=== PATIENT | male | born 1950 | race Caucasian/White ===

== ENCOUNTER 2024-11-20 15:28 | Outpatient (CLI) | payer BC, SELFPAY ==
--- NOTE | 2024-11-20 10:00 | DI.RAD_ITS ---
Exam(s) XR LUMBAR SPINE AP, LAT EXAM: XR LUMBAR SPINE AP, LAT CLINICAL HISTORY: LOW BACK PAIN. TECHNIQUE: 2D digital imaging was performed. Five views. COMPARISON: No exams were available for comparison FINDINGS: BONES: No acute fracture or destructive lesion. Mild compression fracture of the superior endplate of L4. The remaining vertebral body heights are maintained. DISKS: Severe narrowing of the L2-3 disc space with prominent endplate osteophytes eccentric towa rd the right. Severe narrowing of the L 3 4 disc space on the left thick left eccentric osteophytes. Severe narrowing of the L5-S1 disc space with endplate osteophytes. ALIGNMENT: Mild degenerative scoliosis. SOFT TISSUE: Normal. IMPRESSION: Mild L4 compression fracture. Severe degenerative disc changes at L2-3, L3-4 and L5-S1. DATA REPOSITORY: RADIATION DOSE DELIVERED:
--- NOTE | 2024-11-20 10:00 | DI.RAD_ITS ---
Exam(s) XR HIP RT COMPLETE AP PELVIS EXAM: XR HIP RT COMPLETE AP PELVIS CLINICAL HISTORY: RIGHT HIP PAIN. TECHNIQUE: 2D digital imaging was performed. Two views COMPARISON: No exams were available for comparison FINDINGS: BONES: No acute fracture is present. No bony destructive lesion is seen. JOINTS: No dislocation present. Obliteration of the right hip joint space, with a [id number] appe arance. Subchondral cysts on both sides of the joint. Prominent periarticular spurring. The left h ip joint space is maintained. There is left acetabular spurring. Degenerative changes also noted at right SI joint. SOFT TISSUE: Normal. IMPRESSION: End-stage degenerative changes of the right hip. DATA REPOSITORY: RADIATION DOSE DELIVERED:
--- NOTE | 2024-11-20 10:00 | DI.RAD_ITS ---
Exam(s) XR KNEE RT 3V AP,LAT,VANESA EXAM: XR KNEE RT 3V AP,LAT,VANESA CLINICAL HISTORY: eval R knee pain, h/o arthroscopy. TECHNIQUE: 2D digital imaging was performed. Three views. COMPARISON: No exams were available for comparison FINDINGS: BONES: No acute fracture is present. No bony destructive lesion is seen. JOINTS: The knee is normally aligned. No joint effusion is seen. The joint spaces are maintained. Minimal periarticular spurring. SOFT TISSUE: Normal. IMPRESSION: Minimal degenerative changes. DATA REPOSITORY: RADIATION DOSE DELIVERED:
== END 2024-11-20 15:29 | disposition home or self-care (01) ==
LOC: DIORS 15:29
PROVIDERS: PCP Family Medicine; Visit Provider Student in an Organized Health Care Education/Training Program
DX: M51.362 Other intervertebral disc degeneration, lumbar region with discogenic back pain and lower extremity pain (principal); M16.0 Bilateral primary osteoarthritis of hip
CPT/HCPCS: 73562; 72100; 73502

== ENCOUNTER 2024-12-12 01:19 | Outpatient (CLI) | payer MEDICARE, BC, SELFPAY ==
--- OUTSIDE RECORDS SUMMARY | 2024-12-12 01:28 | XMS_ITS | Referral Summary ---
Author Organization [facility] Address [address] [place] [address] Care Team Providers Care Livestock Broker Name Role Phone Benjamin Maki DO Primary Care Provider [phone] Social History Tobacco Use Types Packs/Day Years Used Date Smoking Tobacco: Never Assessed Interpersonal Safety Answer Date Record ed Physically Hurt Never 03/04/2021 Verbally Threaten Not on file 03/04/2021 Sex and Gender Information Value Date Recorded Sex Assigned at Not on file Legal Sex Male 7:39 EDT Gender Identity Not on file Sexual Orientation Not on file Plan of Treatment Not on file Insurance [facility] Care Teams Livestock Broker Relationship Specialty Start Date End Date Benjamin Maki DO [address] [place] [address] PCP - General Family Medicine - Primary Care 02/03/21
--- OUTSIDE RECORDS SUMMARY | 2024-12-12 01:28 | XMS_ITS | Clinical Summary ---
Author Organization [facility] Address [address] [place] [address] Care Team Providers Care Supervisor Channel Process Name Role Phone Benjamin Maki DO Primary Care Provider Social History Tobacco Use Types Packs/Day Years Used Date Smoking Tobacco: Never Assessed Interpersonal Safety Answer Date Record ed Physically Hurt Never 03/04/2021 Verbally Threaten Not on file 03/04/2021 Sex and Gender Information Value Date Recorded Sex Assigned at Not on file Legal Sex Male 7:39 EDT Gender Identity Not on file Sexual Orientation Not on file Plan of Treatment Health Maintenance Due Date Last Done Comments Hepatitis C Screen 1950 Fall Risk Screening 2017 COVID-19 Vaccine (2023-25 season) 2024 RSV Immunization ( o r 60+ Years) (1 - 1-dose 75+ series) 2027 Insurance [facility] Care Teams Supervisor Channel Process Relationship Specialty Start Date End Date Benjamin Maki DO [address] [place] [address] PCP - General Family Medicine - Primary Care 02/03/21
--- OUTSIDE RECORDS SUMMARY | 2024-12-12 01:28 | XMS_ITS | Encounter Summary ---
Author Organization [facility] Address [address] [place] [address] Care Team Providers Care Instrumentation Technologist Name Role Phone ShanthiBenjamin Resendiz Primary Care Provider [phone] Encounter Details Date Type Department Care Team (Late st Contact Info) Description 06/22/2022 Lab Requisition [facility] Pathology & Laboratory Medicine - [address] [address] Michelet Tucker MD [address] [place] [address] Localized swelling, mass and lump, trunk Social History Tobacco Use Types Packs/Day Years Used Date Smoking Tobacco: Never Assessed Interpersonal Safety Answer Date Record ed Physically Hurt Never 03/04/2021 Verbally Threaten Not on file 03/04/2021 Sex and Gender Information Value Date Recorded Sex Assigned at Not on file Legal Sex Male 7:39 EDT Gender Identity Not on file Sexual Orientation Not on file documented as of this encounter Plan of Treatment Not on file documented as of this encounter Procedures Procedure Name Priority Date/Time Associated Diagnosis Comments SURGICAL PATHOLOGY Today 06/22/2022 10 :06 EDT Localized swelling, mass and lump, trunk documented in this encounter Results * SURGICAL PATHOLOGY (06/22/2022 10:06 EDT) Note to Patient The following pathology results have been interpreted by your pathologist and may be available to you before your health provider has had the opportunity to review them. Please allow time for your provider to receive these results and explore management options, if applicable. 07/04/2022 11:51 EDT [facility] Final Diagnosis A. SOFT TISSUE OF NECK, POSTERIOR, CYST, EXCISION: - Ruptured epidermal inclusion cyst with marked acute and chronic inflammation (see comment). 07/04/2022 11:51 [facility] Diagnosis Comment GMS and gram stains are negative for definitive fungal or bacterial organisms. 07/04/2022 11:51 [facility] Attestation There was significant resident/fellow involvement in the diagnostic evaluation of this case. By the signature below, the attending physician certifies that they have personally conducted a gross and/or microscopic examination of the described specimens and rendered or confirmed the above diagnosis. 07/04/2022 11:51 [facility] at 1151 Clinical History Clinical diagnosis code: R22.2 07/04/2022 11:51 [facility] Gross Description A. Received in formalin labelled with proper patient identification (initials T, P) and posterior neck cyst is a previously disrupted yellow-white to goetz rubbery irregularly-shape d tissue (3.6 x 1.9 x 1.0 cm). The tissue is partially covered by a white-goetz pasty material. The specimen is serially sectioned to reveal a smooth walled cystic cavity (2.0 x 1.3 x 0.6 cm) that is partially line with white-goetz pasty material. The remaining cut surfaces are yellow-white to dark brown and smooth. Steam Boiler Fireman sections are submitted in A1 and A2. SOFÍA DAWKINS MD 06/23/2022 14:40 07/04/2022 11:51 [facility] Resident/Fabrice w: Sofía Dawkins MD Koster, Thomas John, DO 07/04/2022 11:51 T [facility] Performing Lab [facility] 07/04/2022 11:51 [facility] Scanned Images 07/04/2022 11:51 [facility] Tissue SOFT TISSUE / Unknown 06/22/2022 10:06 EDT 06/22/2022 23:56 EDT us Michelet Tucker MD PATHOLOGY ORDERABLES F inal Result [facility] [address] [place] [address] documented in this encounter Visit Diagnoses Diagnosis Localized swelling, mass and lump, trunk documented in this encounter Care Teams Instrumentation Technologist Relationship Specialty Start Date End Date Benjamin Maki DO [address] [place] [address] PCP - General Family Medicine - Primary Care 02/03/21 documented as of this encounter
--- OUTSIDE RECORDS SUMMARY | 2024-12-12 01:28 | XMS_ITS | Encounter Summary ---
Author Organization [facility] Address [address] [place] [address] Care Team Providers Care Fire Services Plumber Name Role Phone ShanthiBenjamin Resendiz Primary Care Provider Encounter Details Date Type Department Care Team (Late st Contact Info) Description 03/04/2021 Lab Requisition [facility] Pathology & Laboratory Medicine - [address] [address] Dung Sharma MD [address] [place] [id number] Encounter for screening for malignant neoplasm of colon Social History Tobacco Use Types Packs/Day Years [...] Date/Time Associated Diagnosis Comments SURGICAL PATHOLOGY Today 03/03/2021 10 :17 EDT Encounter for screening for malignant neoplasm of colon documented in this encounter Results * SURGICAL PATHOLOGY (03/03/2021 10:17 EDT) Final Diagnosis A. COLON, CECUM, POLYP, BIOPSY: - Benign colonic mucosal fold. See comment. B. COLON, RECTOSIGMOID JUNCTION, POLYP, BIOPSY: - Hyperplastic polyp 03/08/2021 8:51 EDT [facility] Diagnosis Comment Deeper sections have been examined. 03/08/2021 8:51 EDT [facility] Attestation By the signature below, the attending physician certifies that they have 1) personally conducted a gross and/or microscopic examination of the described specimen(s), and/or personally interpreted the results of laboratory testing of the described specimen(s), and 2) personally rendered or confirmed the above diagnosis. 03/08/2021 8:51 T [facility] at 0851 Clinical History Screening colonoscopy; clinical diagnosis code: Z12.11 03/08/2021 8:51 EDT [facility] Gross Description A. Received in formalin labelled with proper patient identification (initials T, P) and cecal polyp are 2 fragments of mccall tissue measuring 0.2 cm and 0.3 cm in greatest dimension. The specimens are submitted in A1. B. Received in formalin labelled with proper patient identification (initials T, P) and rectosigmoid junction polyp is a single fragment of mccall tissue (0.2 x 0.2 x 0.2 cm). The specimen is submitted in B1. ESTIVEN FARMER(ASCP) 03/04/2021 8:31 03/08/2021 8:51 EDT [facility] Performing Lab [facility] 03/08/2021 8:51 T [facility] Scanned Images 03/08/2021 8:51 T [facility] Tissue ENTIRE SIGMOID COLON / Unknown 03/03/2021 10:17 EDT 03/04/2021 7:40 EDT Tissue specimen (specimen) SIGMOID COLON STRUCTURE / Unknown 03/03/2021 10:17 EDT 03/04/2021 7:40 EDT us Dung Sharma MD PATHOLOGY ORDERABLES Final Result [facility] [address] [place] [address] documented in this encounter Visit Diagnoses Diagnosis Encounter for screening for malignant neoplasm of colon Special screening for malignant neoplasms, colon documented in this encounter Care Teams Fire Services Plumber Relationship Specialty Start Date End Date Benjamin Maki DO [address] [place] [address] PCP - General Family Medicine - Primary Care 02/03/21 documented as of this encounter
[2024-12-12 10:15] LABS: HGB 14.3 g/dL (13.5-17.5); MCH 32.3 pg (27.0-33.0); MCV 95 fL (80-95); MPV 10.4 fL (8.0-11.0); Platelet Count 196 10^3/uL (130-400); RBC 4.43 10^6/uL (4.36-5.78); RDW 12.3 % (11.8-14.1); RDW-SD 43.5 fL; WBC 5.81 10^3/uL (4.4-10.8)
[2024-12-12 10:28] LABS: Anion Gap 6.5 mmol/L (3-11); BUN 19 mg/dL (7-18); CO2 30.5 mmol/L (21.0-32.0); CREATININE 1.1 mg/dL (0.70-1.30); Calcium 9.1 mg/dL (8.5-10.1); Chloride 106 mmol/L (98-107); Estimated GFR 71.32 (mL/min/1.73m2); Glucose 94 mg/dL (74-106); Potassium 3.5 mmol/L (3.5-5.1); Sodium 143 mmol/L (136-145)
== END 2024-12-12 01:20 | disposition home or self-care (01) ==
LOC: LBO 01:19
PROVIDERS: PCP Family Medicine; Visit Provider Student in an Organized Health Care Education/Training Program
DX: M16.11 Unilateral primary osteoarthritis, right hip (principal); Z01.818 Encounter for other preprocedural examination
CPT/HCPCS: 36415; 80048; 85027

== ENCOUNTER 2024-12-23 07:57 | Day surgery (SDC) | payer MEDICARE, BC, SELFPAY ==
[2024-12-23] VITALS (13 sets, daily range): BP systolic 135–175; BP diastolic 71–109; PULSE 55–143; RESP 12–27; TEMP 36.3–36.6; O2SAT 96–100; BMI 29.5
--- NOTE | 2024-12-23 08:34 | W.ANESPRE ---
General Info Date of Service Date Performed: 12/23/24 Height: 6 ft Weight: 98.883 kg Body Mass Index (BMI): 29.5 Surgical Procedure: Operation Date: 12/23/24 10:35 Proposed Procedure Side Surgeon p Hip Total Hip Anterior, ACTIS Right Robert Mccormick MD Meds Allergies and Home Medications Allergies Allergy/AdvReac Type Severity Reaction Status Date / Time No Known Allergies Allergy Verified 12/23/24 08:42 Home Medication ?Medication ?Instructions ?Recorded acetaminophen 650 mg 650 mg PO Q8H 09/17/24 tablet,extended release (Tylenol 8 Hour) apixaban 5 mg tablet (Eliquis) 5 mg PO BID 09/17/24 furosemide 40 mg tablet 40 mg PO DAILY 11/20/24 metoprolol succinate 25 mg 25 mg PO DAILY 11/20/24 tablet,extended release 24 hr Current Visit Medications: Current Medications Generic Name Dose Route Start Last Admin Trade Name Freq PRN Reason Stop Dose Admin Acetaminophen 1,000 mg 12/23/24 06:00 Acetaminophen 500 Mg Tab PO 12/23/24 23:59 PREOP KAYLIE Celecoxib 400 mg 12/23/24 06:00 Celecoxib 200 Mg Cap PO 12/23/24 23:59 PREOP KAYLIE Hydromorphone HCl 0.5 mg 12/23/24 07:23 Hydromorphone 2 Mg/Ml Syr IVP 01/22/25 07:22 Q2H PRN PRN Ringer's Solution 1,000 mls @ 80 mls/hr 12/23/24 06:00 IV 12/23/24 23:59 INFUSION KAYLIE Cefazolin Sodium/Dextrose 2 gm in 50 mls @ 100 mls/hr 12/23/24 06:00 Ancef Duplex IVPB 12/23/24 23:59 PREOP KAYLIE Tranexamic Acid/Sodium Chloride 1,000 mg in 100 mls @ 600 mls/hr 12/23/24 06:00 IVPB 12/23/24 23:59 PREOP KAYLIE Cefazolin Sodium/Dextrose 1 gm in 50 mls @ 100 mls/hr 12/23/24 08:00 Ancef Duplex IVPB 12/24/24 00:29 Q8H KAYLIE IV Miscellaneous Supplies 1 each 12/23/24 06:00 Iv Access IV 12/23/24 23:59 DIRECTED KAYLIE Oxycodone HCl 0 mg 12/23/24 07:23 Oxycodone 5 Mg Tab PO 01/22/25 07:22 Q3H PRN PRN Pain Sodium Chloride 0 ml 12/23/24 06:00 Normal Saline Flush 10 Ml Syr IV 12/23/24 23:59 PRN PRN Sodium Chloride 0 ml 12/23/24 06:00 Normal Saline 10 Ml Vial IJ 12/23/24 23:59 DIRECTED PRN Sterile Water 0 ml 12/23/24 06:00 Water,Injection,Sterile 10 Ml Vial IJ 12/23/24 23:59 DIRECTED PRN PFSH Active Problems Active Problems: Problem Status Onset Code Arthritis of right hip Chronic M16.11 Full dentures Acute Z97.2, K08.109 Afib Chronic I48.91 Medical History Medical History (Updated 12/23/24 @ 09:41 by Arlene Cortez) History of echocardiogram (05/05/24) Surgical History Surgical History History of excision of mass neck History of colonoscopy (02/16/21) History of arthroscopy of right knee (11/01/23) Dr. Snyder Tobacco Smoking/Tobacco Use Status: Never Alcohol Alcohol Intake: never Substance Use Substance use: Never Substance use type: does not use Vital Signs and Lab Results Vital Signs Most Recent Vital Signs in EMR: Temp Pulse Resp BP Pulse Ox 36.4 C L 64 16 175/88 H 99 12/23/24 08:35 12/23/24 08:35 12/23/24 08:35 12/23/24 08:35 12/23/24 08:35 Lab Results Blood Type / Crossmatch: No Data to Display Complete Blood Count: White Blood Count 5.81 10^3/uL (4.4-10.8) 12/12/24 09:31 Red Blood Count 4.43 10^6/uL (4.36-5.78) 12/12/24 09:31 Hemoglobin 14.3 g/dL (13.5-17.5) 12/12/24 09:31 Hematocrit 42.0 % (40.0-50.0) 12/12/24 09:31 Platelet Count 196 10^3/uL (130-400) 12/12/24 09:31 Complete Metabolic Panel: Sodium 143 mmol/L (136-145) 12/12/24 09:31 Potassium 3.5 mmol/L (3.5-5.1) 12/12/24 09:31 Chloride 106 mmol/L (98-107) 12/12/24 09:31 Carbon Dioxide 30.5 mmol/L (21.0-32.0) 12/12/24 09:31 BUN 19 mg/dL (7-18) H 12/12/24 09:31 Creatinine 1.1 mg/dL (0.70-1.30) 12/12/24 09:31 Est GFR (CKD-EPI 2020) 71.32 (mL/min/1.73m2) 12/12/24 09:31 Calcium 9.1 mg/dL (8.5-10.1) 12/12/24 09:31 Glucose 94 mg/dL (74-106) 12/12/24 09:31 Liver Function Panel: No Data to Display Coagulation Panel: No Data to Display Cardiac Panel: No Data to Display Arterial Blood Gas: No Data to Display Venous Blood Gas: No Data to Display Pancreas Panel: No Data to Display Thyroid Panel: No Data to Display Infectious Disease: No Data to Display Blood Cultures: No Data to Display Toxicology Panel: No Data to Display Imaging and Studies Imaging and Studies Study information below may be from another EMR and interpreted by another provider. Please see original notes in EMR for more complete details. Echocardiogram Summary: 12/2024 EF 42%, inferior hypokinesis, mod MR Anesthesia Assessment and Plan Anesthesia History Personal History: No History of Anesthesia Complications Family History: No Family History of Anesthesia Complications Exercise Tolerance Exercise Tolerance: Metabolic Equivalents<4 Pertinent Negatives Pertinent Negatives: No Symptoms of GERD, No Major Cardiovascular Symptoms or Complaints and No Major Pulmonary Symptoms or Complaints Cardiac & Pulmonary Exam Cardiac Exam: Normal S1/S2 Heart Sounds Pulmonary Exam: Clear Bilateral Breath Sounds Cardiac and Pulmonary Comment:: Cardiomyopathy, ASCVD, cardiac clearance from [facility] internal communications specialist last week Implantable Cardiac Device Does patient have a Pacemaker or an ICD?: No Airway Exam Known Difficult Airway: No Mallampati Class: 2 Mouth Opening: Normal (> 3cm) Thyromental Distance: Greater than 3 cm Neck Range of Motion: Full ROM Neck Circumference: Normal Teeth Condition: Generalized Poor Dentition (Many missing teeth, none loose per patient) ASA Classification ASA Score: ASA 3 Emergency Case?: No NPO Status NPO Status: NPO Clears >2 hours, Solids >8 hours Anesthesia Plan Resuscitation Status: Full Code Anesthesia Technique: Spinal Anesthesia Airway Planned: Natural Airway Monitors Used: Standard Monitors Preoperative Comments:: Radha Patel (last dose 12/19/24)
[2024-12-23] MEDS: Celecoxib 200 MG CAP 400 MG PO (08:55)
[2024-12-23] MEDS: Lactated Ringers 1,000 ML 80 ML IV (08:57)
[2024-12-23] MEDS: ceFAZolin 2 GM/50 ML BAG IVPB (10:33)
[2024-12-23] MEDS: TRANEXAMIC ACID/SOD. CHL. 1,000 MG/100 ML BAG 600 MG IVPB (10:50)
--- NOTE | 2024-12-23 10:59 | PDOC.DSDIS_ITS ---
Date of service: 12/23/24 Discharge Plan Disposition Patient Disposition: Home Condition: Good Discharge Details Reason For Visit: Right hip DJD Attending Provider: Robert Mccormick Primary Care Provider: Benjamin Maki Home Meds and New Rx's Prescriptions: New celecoxib [Celebrex] 200 mg capsule 200 mg PO BID PRNQty: 60 0RF Rx Instructions: Take one tablet twice daily for pain and inflammation acetaminophen 500 mg tablet 1,000 mg PO Q8H PRN Qty: 90 0RF Rx Instructions: Take two tablets up to every 8 hours as needed for pain pantoprazole 40 mg tablet,delayed release (DR/EC) 40 mg PO DAILY Qty: 14 0RF dexamethasone 4 mg tablet 4 mg PO DAILY Qty: 2 0RF Rx Instructions: Take one tablet once daily for two days docusate sodium [Colace] 100 mg capsule 100 mg PO BID Qty: 30 0RF oxycodone 5 mg tablet 5 mg PO Q6H PRNQty: 12 0RF Rx Instructions: Take one tablet up to every 6 hours as needed for severe postoperative pain Continued metoprolol succinate 25 mg tablet extended release 24 hr 25 mg PO DAILY furosemide 40 mg tablet 40 mg PO DAILY Eliquis 5 mg tablet 5 mg PO BID Discontinued acetaminophen [Tylenol 8 Hour] 650 mg tablet extended release 650 mg PO Q8H Discharge Instructions Additional Instructions: Total Hip Discharge Instructions Activity: The most important activity is to walk. You should try to take short walks a few times a day. You have no restrictions on movement or positioning, but do not try to force what you do. You will find some stiffness and weakness with hip flexion (lifting your knee). Do not try to strengthen this too early, continue to practice walking and stairs and this will come. - Outpatient physical therapy can be helpful to help return you to a normal gait and improve your flexibility and strength. This can start around 2 weeks. For some patients, it?s not necessary. Usually this is determined at the time of discharge or at the first post-operative visit. - You should wear the MEGHA hose on both legs for 2 weeks. Dressing: Keep the surgical dressing in place for at least one week. After the first week it may be removed and replace with light gauze and tape or nothing. It may get wet after 3 days but avoid soaking the dressing. If it gets wet, just lightly pat dry. It is important to always keep some gauze between skin folds, especially when you are sitting. Spend some time with the wound exposed when you are lying flat as the incision does wrinkle onto itself. Medications: - You should take Tylenol and an anti-inflammatory Celebrex as your primary pain control medications. If the Celebrex is too expensive or not covered, please call the office for another alternative (Advil/Ibuprofen or Naproxen/Aleve). - You have been prescribed a stronger pain medication Oxycodone for breakthrough pain, take as needed as prescribed. - You have also been prescribed a stomach acid reduction agent Pantoprozole to help reduce stomach acid and reflux. - You have also been prescribed Decadron to help with post-operative nausea and pain. You will take this for two days starting tomorrow. - You will resume taking your anticoagulation, Apixaban, tomorrow on 12/24/24. - If you have constipation you should take Colace (which has been prescribed) or Miralax (which is available [id number]). It takes most people 3-4 days to have a bowel movement. Follow-up: 2 weeks If you have any acute concerns or questions, please do not hesitate to contact the office at [phone]. You may contact Dr. Mccormick with any questions after hours through the hospital at [phone] or on his cell phone at [phone]. Referrals: Robert Mccormick MD [ [facility] STAFF PHYSICIAN] - Equipment/Supplies: Walker Activity:: Elevate Remove Dressings/Wound Care:: Do Not Remove Shower/Bathe:: Cover Diet:: As Tolerated Discharge Orders Discharge Orders: Discharge Order (Routine); Ordered 12/23/24 Ordered By: Radha Sanchez
--- NOTE | 2024-12-23 12:00 | DI.RAD_ITS ---
Exam(s) XR HIP LT IN OR EXAM: XR HIP LT IN OR CLINICAL HISTORY: left hip osteoarthritis TECHNIQUE: 2D and realtime digital imaging was performed. CONTRAST MATERIAL: Refer to procedure report. COMPARISON: CR XR HIP RT COMPLETE AP PELVIS from 11/20/2024 FINDINGS: Fluoroscopy was provided for Dr. Mccormick during the performance of a right total hip arthroplasty. Please refer to the procedure report for complete details. Ka,r=4.4 mGy IMPRESSION: RADIATION DOSE DELIVERED: 0.0 0.0 0
--- NOTE | 2024-12-23 12:16 | W.PM.OP ---
Operative Note Operative Note PRE-OP DIAGNOSIS: Right Hip Osteoarthritis POST-OP DIAGNOSIS: same PROCEDURE: Right Anterior Total Hip Arthroplasty with Intraoperative Navigation SURGEON: Robert Mccormick ANIMAL PHYSIOLOGY TEACHER: Radha Sanchez ANESTHESIA TYPE: Spinal Refer to Anesthesia Record ESTIMATED BLOOD LOSS: 150 PATHOLOGY: none sent TOURNIQUET TIME: 0 COMPLICATIONS: None Patient was transported to: PACU Patient's condition: stable Implants: 1. Depuy Imperial Acetabular Component, 58mm 2. Depuy Acetabular Liner, [id number] 3. Depuy Actis Standard Collared Femoral Stem, Size 8 4. Depuy Altrx Ceramic Femoral Head, Size 36+5mm Indications: I have seen Duke in clinic for symptoms of hip arthritis, confirmed with radiographic findings. He has exhausted nonoperative methods and was having significant limitations in daily function and desired better function and less pain. I discussed the technical details of a hip replacement. I explained the risks of the procedure to include, but not limited to, bleeding, infection, pain, stiffness, fracture, damage to nerves and vessels, damage to muscles and tendons, loosening, instability, leg length inequality, need for repeat procedure, blood clot and cardiopulmonary demise. Despite these risks, Duke elected to proceed. Findings: There was significant signs of arthritis throughout the hip with large osteophytes throughout. THere was notable deformity of the superior femoral head and loose osteophytes adjacent to the superior acetabulum. Procedure Description: Duke was greeted in the preoperative holding area where the correct side was identified and marked. The consent was reviewed with the patient and signed. The history and physical was updated. All questions were answered. He was taken back to the operating room. A spinal anesthestic was then administered. The feet were wrapped with cast padding and Coban and then placed into the boot liners and then into the boots. Care was taken to protect the skin and make sure the heels were fully down and the boots were stable. The patient was then positioned onto the HANA table. Both legs were held in a neutral position. SCDs were applied. The patient was then slid down onto a peroneal post. Prophylactic antibiotics in the form of Cefazolin were administered. 1g of Tranxemic Acid was given intravenously within 30 minutes of incision. The right leg was then prepped with Chloraprep and draped in a standard fashion. A second prep with Chloraprep was performed prior to placement of a shower-curtain type drape with Iodine impregnated skin protection. A timeout to confirm correct identity, side and site, procedure, allergies, anesthesia, and medical concerns was performed. An obliquely oriented incision was made starting lateral to the ASIS and running distal over the Tensor Fascia Arabella (TFL) muscle belly toward the fibular head, approximately 10cm. The skin and soft tissue was dissected sharply, through Dariana?s fascia, and to the fascia of the TFL. With the fascia and superior border of the IT band identified, the fascia was incised with a new knife just above any perforators from the IT band. The TFL muscle belly was bluntly dissected away from the fascia and moved laterally. The fat between TFL and rectus was identified to ensure the dissection was not within the TFL. Blunt dissection created space between abductors and the capsule and retractor was placed over the lateral femoral neck. The fibers of the rectus femoris tendon were identified and these were freed from the anterior capsule. A second cobra retractor was placed around the medial femoral neck. The TFL was further retracted laterally to show the deep fascia. Careful dissection through this layer identified three main crossing vessels of the lateral femoral circumflex. These were cauterized in multiple locations and then cut without any noticeable bleeding. The TFL was further released bluntly from the deep fascia to expose anterior hip capsule and fat The soft tissue orthopaedic retractor was then placed beneath the TFL and against sartorius and medial soft tissues to protect and retract the soft tissues. A T-capsulotomy was then performed starting at the superior lateral acetabulum and moving distally to the intertrochanteric ridge. These capsular flaps were tagged with a No. 1 Vicryl and elevated from within. The capsular flaps were released to the shoulder of the lateral neck and to the lesser trochanter to give excellent visualization of the proximal femur. A neck osteotomy was performed using an oscillating saw based on preoperative templates. This cut started in the shoulder and of the lateral neck and exited medially. The saw was at all times directed medially to avoid injury to the greater trochanter. Gross traction was applied to the leg and the osteotomy opened. The femoral head was removed with a corkscrew, making sure to protect the TFL on its exit. Traction was released after head removal. This was measured on the back table to determine the starting reamer size. Portions of the rectus obscuring visualization were minimally elevated off the superior acetabulum. An anterior retractor was placed over the anterior wall between capsule and labrum and attached to the Gripper retraction system. The femur was rotated to 90 degrees and medial capsule was fully released until the lesser trochanter was palpable and visible; the femur was returned to 30 degrees. A posterior retractor was placed similarly between capsule and labrum. This provided excellent visualization. The contents of the cotyloid fossa were removed with electrocautery and the labrum was removed with a knife. There was a notable floor osteophyte. There was significant chondromalacia of the superior acetabulum. Acetabular reaming began with a 53mm reamer. This first reaming was directed anterior to posterior and medial to get down to the true floor. This was inspected and reamed until the true floor was reached. The anterior retractor was then released and entry and exit was provided by traction on the capsular flaps. I then reamed sequentially up to a 58mm reamer where good fit was obtained. The larger reamers were oriented based on anatomical reference of the anterior and lateral gaston to ensure proper abduction and anteversion. Positioning and size was confirmed with the fluoroscopy. A 58mm Depuy Imperial acetabular component was selected. The acetabulum was reamed around the periphery with the selected acetabular size to prevent a rim fit. The deep tissues were irrigated. The acetabular component was then impacted in a position of about 40-45 degrees of abduction and 15-20 degrees of anteversion, using the patient?s anatomy as the ultimate landmark. Fluoroscopy was used to confirm this. There was excellent photoengraving helper of the acetabular component and the inserting handle was removed. The acetabular liner, Depuy [id number] polyethylene liner, was inserted and lined up with the tines of the acetabular component. There was no soft tissue interposition. The liner was then impacted into position and confirmed to be well-seated. A portion of the oma-articular cocktail was then injected around the acetabulum into the capsule and periosteum. This cocktail consisted of 123mg of Ropivacaine, 0.25mg of Epinephrine, 0.04mg of Clonidine, and 15mg of Ketorolac, diluted to 50cc. The leg was rotated to 120 degrees. Any remaining medial capsule was released until the lesser trochanter was easily palpable. A retractor was placed medially. The lateral capsule was further released into the shoulder to allow access to the greater trochanter. A Alford retractor was placed over the greater trochanter which allowed the trochanter to flip in front of the capsule for excellent exposure. The leg was brought down into maximal extension and 20 degrees of adduction while ensuring there was no impingement on the acetabulum. Any remnant capsule within the trochanter was released. Piriformis and obturator externis were identified and protected. There was excellent access to the proximal femur. The lateral neck remnant was removed with a rongeur. A blunt canal probe was used to identify the canal and trajectory for later broaching. A box osteotome initiated the broach course. A small curved rasp and a curved curette were used to work laterally. Broaching then began with a starter Actis broach. This was inserted manually around the trochanter and into the canal before mallet blows. The broach was seated to a few millimeters below the cut level based on the neck cut and the preoperative template. Sequential broaching was continued with the [employer] pneumatic broaching device until a tight fit was obtained with good rotational control of the femur. A trial standard neck was inserted along with a +1.5 trial head. The leg was brought out of extension and adduction and then reduced with traction and internal rotation. The leg was stable anteriorly in a position of 30 degrees of extension and 90 degrees of external rotation. Fluoroscopy was used to ensure there was no fracture and the stem was seated well. Leg lengths were checked with an AP pelvis and pelvic reference points. [employer] navigation system was used to confirm appropriate positioning and leg length and offset. Once content with the desired offset and leg lengths, the leg was brought back into extension, external rotation and adduction. The periosteum and surrounding tissue was injected with remaining portion of the oma-articular cocktail. The proximal femur was irrigated as well as the deep tissues. The [employer] Actis standard collared stem, size 8, was then manually inserted into the proximal femur making sure to control rotation. It was then malleted into position with light blows, giving breaks to allow bone expansion and decrease risk of fracture. The selected Depuy Altrx Ceramic Head, size 36+5mm, was then placed onto the clean and dry trunnion and secured with impaction onto the tapered fit. The leg was brought back out of extension and adduction and reduced with traction and internal rotation. Stability was confirmed with no shuck at 90 degrees of external rotation and 30 degrees of extension. No impingement through range of motion arc. Final x-ray images were obtained with fluoroscopy to confirm adequate positioning and no intraoperative fracture. The deep tissues were thoroughly irrigated with Surgiphor, betadine solution. This was allowed to sit in the wound for 3 minutes before being thoroughly irrigated out with normal saline. The capsule was then reapproximated with the previously placed sutures. The TFL fascia was finally closed with a No. 2 Stratafix, barbed suture. Deep tissues were then reapproximated with 0 Vicryl and a running 2-0 Vicryl. The skin was closed with a running 4-0 Monocryl in a subcuticular fashion. This was reinforced with skin glue. A Mepilex silver dressing was applied. At the end of the case, all counts were correct. Duke was transferred to the hospital bed without difficulty and suffering no apparent complication. Duke has a good prognosis. Physical therapy will start today and without restrictions, weight-bearing as tolerated. His home dose of Apixaban 5mg will be used for DVT prophylaxis. Date of Procedure: 12/23/24
--- NOTE | 2024-12-23 12:30 | DI.RAD_ITS ---
Exam(s) XR HIP RT IN OR EXAM: XR HIP RT IN OR CLINICAL HISTORY: Right hip osteoarthritis TECHNIQUE: 2D and realtime digital imaging was performed. CONTRAST MATERIAL: Refer to procedure report. COMPARISON: CR XR HIP RT COMPLETE AP PELVIS from 11/20/2024 FINDINGS: Fluoroscopy was provided for Dr. Mccormick during the performance of a right total hip arthroplasty. Please refer to the procedure report for complete details. Ka,r=4.4 mGy IMPRESSION: RADIATION DOSE DELIVERED: 0.0 0.0 0
--- NOTE | 2024-12-23 13:13 | W.ANESPOSTOP ---
Postoperative Evaluation Date, Time and Location Date Performed: 12/23/24 Time Performed: 13:13 Patient Location: Day Surgery Unit Vital Signs Most Recent Imported Vital Signs: Most Recent Vital Signs Temp Pulse Resp BP Pulse Ox 36.3 C L 64 16 150/93 H 98 12/23/24 12:46 12/23/24 12:46 12/23/24 12:46 12/23/24 12:46 12/23/24 12:46 Pain Score Most Recent Pain Score: Most Recent Pain Score Pain Level 1 12/23/24 12:46 Assessment Mental Status: Awake (Alert & Oriented to Patient Baseline) Airway and Respiratory Function: Patent airway with normal (patient baseline) respiratory exam Cardiovascular Function: Hemodynamically Stable Hydration Status: Adequately Hydrated Nausea & Vomiting: No Nausea or Vomiting Pain: Pain is tolerable per patient Peripheral Nerve Block: Patient did not receive a nerve block
--- NOTE | 2024-12-23 13:43 | IN_ITS ---
PT Notes Visit Reasons: Right hip DJD Physical Therapy Day Surgery Initial Evaluation Date: 12/23/2024 Referring Doctor: ESTIVEN Mann PT Orders: PT CONSULT: S/P Ortho surgery Precautions: WBAT on right LE with AD. Patient Profile/Admitting Diagnosis: Duke is a 74-year-old male with degenerative joint disease of the right hip and status post right total hip arthroplasty on postoperative day 0. PMHX: Medical History (Updated 12/12/24 @ 10:08 by Radha Sanchez) History of echocardiogram (05/05/24) Surgical History (Updated 12/12/24 @ 10:09 by Radha Sanchez) History of excision of mass neck History of colonoscopy (02/16/21) History of arthroscopy of right knee (11/01/23) Dr. Snyder Social History/Home Situation: Lives with in a private home with 1-2 steps to enter without rails and a flight of steps to the second floor of the house where the bedroom is. Had been using bilateral axillary crutches for 4 months for safety. Equipment Owned/DME: [employer], bilateral axillary crutches Subjective: Denied headache, chest pain, and lightheadedness throughout session reported 2/10 pain in the right hip with movement, 0/10 at rest. Objective: General Observation: Mepilex Ag over surgical incision. TDS to be legs. Mental Status: A and O x 4 Pain: complained of 2/10 pain in the right hip with movement ROM: Right Lower Extremity: Hip flexion WFL. Hip abduction WFL. Knee flexion 10 degrees to 110 degrees. Extension -10 degrees. Ankle dorsiflexion WFL. Ankle plantarflexion WFL. Left Lower Extremity: Hip flexion WFL. Hip abduction WFL. Knee flexion WFL. Ankle dorsiflexion WFL. Ankle plantarflexion WFL. Strength: Right Lower Extremity: Hip flexors 4/5. Hip abductors 4/5. Knee flexors 3-/5. Knee extensors 3-/5. Ankle dorsiflexors 5/5. Ankle plantarfleors 5/5. Left Lower Extremity:Hip flexors 5/5. Hip abductors 5/5. Knee flexors 5/5. Knee extensors 5/5. Ankle dorsiflexors 5/5. Ankle plantarflexors 5/5. Sensation: Intact tested pain and light pressure in bilateral lower extremities Bed Mobility/Transfers: Minimal cueing provided for use of B hands as needed for support, movement sequence, AD management, and posture to reduce fall risk and minimize pain report Supine to sit standby assist Sit to stand contact-guard assist with FWW Stand to sit standby assist with FWW Bed to chair standby assist with FWW Gait: Facilitate safe and correct performance of level surface ambulation covering a distance of 150 feet using front wheeled walker requiring only standby assist and moderate verbal cueing for increased trunk and hip extension, R knee extension at midstance, and AD management to facilitate symmetrical LE movement throughout while minimizing pain and reducing fall risk for falls. Stairs: Guided patient with safe and correct negotiation of 3 x 4 inch steps and 2 x 6 inch steps while holding onto bilateral rails with step to gait pattern with minimal verbal cueing provided for limb movement sequence, posture, and hand placement to reduce fall risk and minimize pain report. Balance: Static Sitting: Normal Dynamic Sitting: Normal Static Standing: Fair Dynamic Standing: Fair Special Tests: Mobility Limitations Standardized Measure [facility] 6 clicks Basic Mobility Inpatient Short Form: Raw Score: 22 CMS Score: 21% deficit Informed Consent/Education: Patient instructed in purpose of PT consult. Packet containing SUSY exercise protocol has been given to patient. Education and training on initial set of exercises that can be done at home have been completed with patient. Trained patient with correct performance of exercises below to maximize motor control, joint flexibility, soft tissue extensibility of the R hip musculature to facilitate return to independent functional mobility performance. Access Code: [email or web address] URL: [email or web address] Date: 12/23/2024 Prepared by: Gail Franco Exercises - Gluteal Sets - 1 x daily - 7 x weekly - 1 sets - 10 reps - 5 hold - Supine Heel Slide - 1 x daily - 7 x weekly - 1 sets - 10 reps - 5 hold - Supine Ankle Pumps - 1 x daily - 7 x weekly - 1 sets - 10 reps - 5 hold - Seated March - 1 x daily - 7 x weekly - 1 sets - 10 reps - 5 hold - Seated Long Arc Quad - 1 x daily - 7 x weekly - 1 sets - 10 reps - 5 hold Assessment: Patient requires the use of a front wheeled walker for mobility ADL performance to maximize independence and reduce fall risk. Longstanding hamstring tightness limited performance of correct gait pattern but with verbal and tatile cueing, patient was provided with strategies to maximize posture and stability in the R hip and knee. Patient presents with clinical signs and symptoms consistent with current/admitting diagnoses that have resulted to mobility limitations, gait instability, generalized weakness, and impairment of motor control as demonstrated by the following impairment level findings: 1. Decreased strength to R hip major muscle groups 2. Impaired standing balance 3. Limitation of joint range of motion in R hip and knee Impairments are contributing to the following functional limitations: 1. Inability to safely ambulate without assistive device 2. Increase completion time for mobility ADL performance 3. Increased fall risk Patient is assessed as a [id number] moderate complexity based on the following: History: 74-year-old male with impairment level findings, functional limitations, and past medical history as indicated above Examination: Demonstrable impairment in strength, balance, and mobility level with underlying impairments and functional limitations as documented above Presentation: Evolving Decision Makin moderate complexity Goals: N/A. PT evaluation and 1-2 treatment sessions only for functional mobility training using recommended AD and for HEP instruction. Plan of Care/Treatment Plan: N/A. PT evaluation and 1-2 treatment session only for functional mobility training using recommended AD and for HEP instruction. DISCHARGE RECOMMENDATIONS: Home when medically cleared by orthopedic surgeon. Recommend outpatient PT services in order to optimize functional mobility outcomes and facilitate return to independent community ambulation without an assistive device. TREATMENT CODE/TIME: 27104 x 20 minutes for 1 unit, 10705 x 26 minutes for 2 units (13: 43?14: 29). Thank you for the opportunity to participate in the care of this patient. Please sign an return this page within 30 days if you agree with the above POC. Thank you! Physician Signature Date [facility] Thank you for the opportunity to participate in the care of this patient. Gail Franco PT, DPT, CLT [facility], [place]
== END 2024-12-23 14:33 | disposition home or self-care (01) ==
PROVIDERS: PCP Family Medicine; Visit Provider Student in an Organized Health Care Education/Training Program
PROC: (CPT 27130; principal; 2024-12-23 10:15)
DX: M16.11 Unilateral primary osteoarthritis, right hip (principal); I48.91 Unspecified atrial fibrillation
CPT/HCPCS: 27130; 20985; 97162; 97530; 73501; C1776; J0690; J1100; J2003; J2250; J2371; J2401; J2405; J2704

== ENCOUNTER 2025-01-05 15:47 | Outpatient (CLI) | payer MEDICARE, BC, SELFPAY ==
--- NOTE | 2025-01-05 10:02 | DI.RAD_ITS ---
Exam(s) XR HIP RT COMPLETE AP PELVIS EXAM: XR HIP RT COMPLETE AP PELVIS CLINICAL HISTORY: 1ST POST OP R SUSY. TECHNIQUE: 2D digital imaging was performed. COMPARISON: CR XR HIP RT COMPLETE AP PELVIS from 11/20/2024 XA XR HIP RT IN OR from 12/23/2024 FINDINGS: Two views Satisfactory position and alignment of components of recently placed (12/23/2024) components of the r ight hip prosthesis. No fractures nor obvious loosening evident IMPRESSION: Satisfactory stable appearance DATA REPOSITORY: RADIATION DOSE DELIVERED:
== END 2025-01-05 15:48 | disposition home or self-care (01) ==
LOC: DIORS 15:48
PROVIDERS: PCP Family Medicine; Visit Provider Student in an Organized Health Care Education/Training Program
DX: Z96.641 Presence of right artificial hip joint (principal); Z47.1 Aftercare following joint replacement surgery
CPT/HCPCS: 73502

== ENCOUNTER → 2025-02-02 08:38 | Outpatient (BNVA) | payer MEDICARE, BC, SELFPAY | PROVIDERS: PCP Family Medicine; Referring Provider Family Medicine; Visit Provider Student in an Organized Health Care Education/Training Program | DX: Z47.1 Aftercare following joint replacement surgery (principal); Z96.641 Presence of right artificial hip joint; M47.27 Other spondylosis with radiculopathy, lumbosacral region | CPT/HCPCS: 99024 ==